=== PATIENT | female | born 1985 ===

== ENCOUNTER 2018-06-08 23:39 | Inpatient (IN) | payer OTHER ==
[2018-06-09] MEDS: Lactated Ringer's 1,000 ML IV ONE ×2 (00:15→00:45)
--- NOTE | 2018-06-09 00:22 | OBADHP ---
Datetime: 06/09/2018 00:06 Admit Comment, IP Provider: 32yo IUP at 39w c/o CTX since 11pm q 5m No SROM; no VB; +FM PNC: CP Dr Bucio - transferred at 31w - chart rev'd POBGYNH: x 1; no STD PMH: denies PSH: denies NKA PSoH: denies smoking ETOH drugs A;IUP at 39w latnet phase of labor painful CTX PLAN admit to L_D pain managent, labor, medications augmentation , delivery and discussed Pelvic Type - PN: Adequate Extremities - PN: Normal Abdomen - PN: Normal Back - PN: Normal Breast - PN: Normal Lungs - PN: Normal Heart - PN: Normal Thyroid - PN: Normal Neurologic - PN: Normal HEENT - PN: Normal General - PN: Normal Presentation-Admit: Vertex IP Fetus A Comments: Sono cpeh FHR - Baseline A Provider: 130 Membranes, Provider: Intact Contraction Comments Provider: occ Pool Provider: Negative IP Hx Assessment: The History has been Reviewed and is Current IP Chief Complaint: Uterine contractions NICHD Variability Prov Fetus A: Moderate 6-25bpm NICHD Accel Fetus A IP Provider: 10X10 FHR Category Provider Fetus A: Category I NICHD Decel Fetus A IP Provider: None Dilatation, Provider: 3-4 Effacement, Provider: 50 Station, Provider: -2 Genitourinary Exam: Normal DTRs - PN: Normal IP Adm Impression: Term, intrauterine ; Intact Membranes IP Admit Plan: Admit to unit; Initiate labor protocol
[2018-06-09 00:23] VITALS: BMI 24.1
[2018-06-09 00:39] LABS: BASO % 0.4 % (0.0-2.0); EOS # 0.2 K/uL (0.0-0.7); EOS % 2.3 % (0.0-4.0); HEMOGLOBIN 11.9 g/dL (12.0-16.0); LYMPH # 1.6 K/uL (1.0-4.3); LYMPH % 21.2 % (20.0-40.0); MEAN CELL VOLUME 90.7 fl (81.0-99.0); MEAN CORPUSCULAR HEMOGLOBIN 30.9 pg (27.0-31.0); MEAN CORPUSCULAR HGB CONC 34.1 g/dL (33.0-37.0); MEAN PLATELET VOLUME 7.8 fl (7.2-11.7); MONO # 0.5 K/uL (0.0-0.8); MONO % 6.3 % (0.0-10.0); NEUT # 5.2 K/uL (1.8-7.0); NEUT % 69.8 % (50.0-75.0); RBC 3.85 Mil/uL (3.80-5.20); RED CELL DISTRIBUTION WIDTH 12.8 % (11.5-14.5); WHITE BLOOD COUNT 7.4 K/uL (4.8-10.8)
[2018-06-09] MEDS ORDERED: Fentanyl/Bupivacaine HCl 250 ML EPI ONE (00:53)
[2018-06-09 01:30] VITALS: RESP 18
[2018-06-09] MEDS: Lactated Ringer's 1,000 ML IV SCH ×2 (01:30→06:00)
[2018-06-09] MEDS ORDERED: Oxytocin 30 UNIT 30 UNITS/500 ML BAG IV ONE ×2 (02:39→09:03)
--- NOTE | 2018-06-09 02:41 | OBPN ---
Datetime: 06/09/2018 02:30 IP Progress Impression: Reassuring heart rate IP Informed Consent Obtain: Vaginal Delivery; Risks, Benefits and Alternatives Discussed IP Progress Plan: Augmentation; Anticipate Vaginal Delivery Pool Provider: Negative Membranes, Provider: Intact Contraction Comments Provider: occ Presentation-Admit: Vertex IP Progress Note Comment: She wanted epidural for CTX pain. She feels much better, A; Latent phase of labor PLAN: Pitocin augmentation - discussed with patient. she agrees. FHR Category Provider Fetus A: Category I Dilatation, Provider: 3-4 Effacement, Provider: 80 Station, Provider: -1 Datetime: 06/09/2018 00:06 FHR - Baseline A Provider: 130 IP Fetus A Comments: Sono cpeh NICHD Accel Fetus A IP Provider: 10X10 NICHD Variability Prov Fetus A: Moderate 6-25bpm NICHD Decel Fetus A IP Provider: None
--- NOTE | 2018-06-09 07:57 | OBPN ---
Datetime: 06/09/2018 07:50 IP Progress Impression: Normal progression of labor; Reassuring heart rate IP Informed Consent Obtain: Vaginal Delivery; Risks, Benefits and Alternatives Discussed IP Progress Plan: Continue present management; Augmentation; Anticipate Vaginal Delivery Pool Provider: Negative Membranes, Provider: Intact Presentation-Admit: Vertex IP Progress Note Comment: Second stage of labor PLAN: anticipate / Pitocin at 2miu/h FHR Category Provider Fetus A: Category I Dilatation, Provider: 10 Effacement, Provider: 100 Station, Provider: 0 NICHD Decel Fetus A IP Provider: None
[2018-06-09] MEDS ORDERED: OXYTOCIN/0.9 % NS 20 UNIT/1,000 ML BAG IV SCH (09:15)
[2018-06-09] MEDS ORDERED: Lidocaine 1% 20 MG/2 ML PF AMP ONE (10:53)
[2018-06-09] MEDS ORDERED: Lidocaine Hydrochloride 5 ML INJ ONE (12:03)
[2018-06-09] MEDS ORDERED: Acetaminophen-Codeine 300/30 mg Tab PO PRN ×2 (13:04→16:19)
[2018-06-09] MEDS ORDERED: Oxycodone/Acetaminophen 5/325 mg Tab PO PRN ×2 (13:04→16:19)
[2018-06-09] MEDS ORDERED: Benzocaine/Menthol SPRAY TOP PRN ×2 (13:04→16:19)
--- NOTE | 2018-06-09 13:18 | OBDS ---
MATERNAL INFORMATION Provider Comments: Pt progressed to complete and pushed to deliver a viable female infant through cl ear fluid at 11:53 am. Apgars 9 and 9. Tight nuchal cord not reduced until until baby was placed on abdomen. Cord doubly clamped and FOB cut the cord. Placenta delivered spontaneously intact w/ a 3v c at 12 noon. Large second degree repaired w/ 2-0 rapide and 3-0 rapide. Pt and baby tolerated the procedure well. Rectum intact. EBL 250 mL LABOR SUMMARY EDC: 06/14/2018 00:00 No. Babies in Womb: 1 LABOR INFORMATION Group B Beta Strep: Negative PRESENTATION/POSITION BABY A Presentation: Cephalic
--- NOTE | 2018-06-09 15:24 | OBDS ---
MATERNAL INFORMATION Provider Comments: Pt progressed to complete and pushed to deliver a viable female infant through cl ear fluid at 11:53 am. Apgars 9 and 9. Tight nuchal cord not reduced until until baby was placed on abdomen. Cord doubly clamped and FOB cut the cord. Placenta delivered spontaneously intact w/ a 3v c at 12 noon. Perineum and vagina infiltrated w/ 1% lidocaine. Anal mucosa reinforced w. 4-0 v inte rrupted stiches followed by running 4-0 v. Large second degree repaired w/ 2-0 rapide and 3-0 rapide . Pt and baby tolerated the procedure well. Rectum intact. EBL 250 mL LABOR SUMMARY EDC: 06/14/2018 00:00 No. Babies in Womb: 1 LABOR INFORMATION Group B Beta Strep: Negative PRESENTATION/POSITION BABY A Presentation: Cephalic
--- NOTE | 2018-06-10 10:36 | OBPPN ---
Datetime: 06/10/2018 10:23 PP Pain Prov: Within normal limits PP Nausea Prov: Denies PP Flatus Prov: Yes PP BM Prov: No PP Breasts Prov: Normal PP Heart Prov: Normal PP Lungs Prov: Normal PP Abdomen/Uterus Prov: Normal PP Lochia Prov: Normal PP Vulva/Perineum Prov: Normal PP CVA Tenderness Prov: Normal PP Extremities Prov: Normal PP Progress Prov: Normal PP Impression Prov: Normal progression; difficulties PP Plan Prov: Continue present management; consult PP Progress Note Prov: Medically she feels fine. Some perineal discomfort byut bearable. She was upset abotu being fully dilated, center consultant accessibility after delivery, delive ry itself, and care - will refer to nurse managers regarding postopartum care A; S/P day 1 PLAN: cont care; center consultant aware and present in hospital...will see pt Poostpartum CBC ordered/ check VZV Vital Signs Provider PP: Within Normal Limits
[2018-06-10 11:27] LABS: HEMOGLOBIN 10.2 g/dL (12.0-16.0); MEAN CORPUSCULAR HEMOGLOBIN 32.2 pg (27.0-31.0); MEAN CORPUSCULAR HGB CONC 35.4 g/dL (33.0-37.0); RBC 3.17 Mil/uL (3.80-5.20); RED CELL DISTRIBUTION WIDTH 12.8 % (11.5-14.5); WHITE BLOOD COUNT 8.2 K/uL (4.8-10.8)
--- NOTE | 2018-06-10 13:06 | NBPN ---
Datetime: 06/10/2018 13:03 Nsy Prov Gen Appearance: Within Normal Limits Nsy Prov Skin: Within Normal Limits Nsy Prov Neuro: Normal Tone; Rainer; Grasp Nsy Prov Musculoskeletal: Within Normal Limits; Full Range of Motion; Spontaneous Movement All Extre mities; Intact Clavicles; Clavicles without Crepitus; Spine Within Normal Limits; No Sacral Dimple/Cy st Nsy Prov Head: Normal Fontanelles; Normocephalic; Sutures WNL Nsy Prov EENT: Mouth Within Normal Limits; Ears Within Normal Limits; Eyes Within Normal Limits; Eye s Red Reflex Bilaterally; Nose Within Normal Limits; Face Within Normal Limits Nsy Prov Cardiovascular: Within Normal Limits; Normal Pulses Nsy Prov Respiratory: Within Normal Limits Nsy Prov GI: Within Normal Limits; Soft; Normal Liver; Non Palpable Spleen Nsy Prov Umbilicus: Within Normal Limits Nsy Prov : Normal Female Genitalia Nsy Prov Gen Appearance Details: with mom then larger family. calm pretty. Awakens then falls back t o sleep Nsy Prov Impression: Healthy Term ; Vital Signs Appropriate; Bonding Appropriately; Voiding a nd Stooling Nsy Prov Plan: Continue Care; Consult Nsy Prov Impression/Plan Details: FT female, AGA, . Well. Breast feeding exclusively with stool a nd void. Experienced mom. Continue routine care. Prepare for discharge tomorrow
[2018-06-11] MEDS ORDERED: Docusate-Senna 50 mg-8.6 mg Tab PO PRN (10:22)
--- NOTE | 2018-06-11 10:31 | OBPPN ---
Datetime: 06/11/2018 10:27 PP Pain Prov: Within normal limits PP Nausea Prov: Denies PP Flatus Prov: Yes PP Breasts Prov: Normal PP Heart Prov: Normal PP Lungs Prov: Normal PP Abdomen/Uterus Prov: Normal PP Lochia Prov: Normal PP Vulva/Perineum Prov: Normal PP CVA Tenderness Prov: Normal PP Extremities Prov: Normal PP C/S Incision Prov: Not Applicable PP Progress Prov: Normal PP Impression Prov: Normal progression PP Plan Prov: Discharge PP Progress Note Prov: s: tolerating reg diet. some pain along laceration repair relieved w/ med. c/ o no bm had prune juice this am i: ppd2 doing well constipation p: d/c colace. rx senokot s prn. rx dulcolax prn sitz baths d/w pt rx meds for d/c: [id number], motrin 600mg #20, senokot s. may take Fe 1-2x per wk if develops cons tipation IP PP Procedures: None Vital Signs Provider PP: Within Normal Limits
--- NOTE | 2018-06-11 10:34 | OBDCSUM ---
Datetime: 06/11/2018 10:31 Follow up at, Provider: ob dr Disch Instr Activity: Normal activity Disch Instr Diet: Regular Discharge Instructions, Provider: Routine instructions given Discharge Diagnosis, Provider: Term Delivered Discharge Time: 06/11/2018 10:31 Follow up in weeks, Provider: 4-6wks Disch Referrals: None Disch Activity Restrictions: No sexual activity; Nothing in vagina - [place], tampons, douche Discharge Comment, Provider: p: d/c colace. rx senokot s prn. rx dulcolax prn sitz baths d/w pt rx meds for d/c: [id number], motrin 600mg #20, senokot s. may take Fe 1-2x per wk if develops cons tipation
[2018-06-11 19:35] VITALS: BP 108/62; PULSE 74; TEMP 97.5; O2SAT 100
== END 2018-06-11 15:15 | disposition home or self-care (01) | DRG 775 ==
LOC: H.EROB2 23:39 → H.L&D 06-09 00:07 → H.OB/GYN 06-09 14:41
PROVIDERS: ADMIT Obstetrics & Gynecology; ATTEND Obstetrics & Gynecology
PROC: 10E0XZZ Delivery of Products of Conception, External Approach (ICD-10-PCS; principal; 2018-06-09)
PROC: 0KQM0ZZ Repair Perineum Muscle, Open Approach (ICD-10-PCS; 2018-06-09)
PROC: 4A1HXCZ Monitoring of Products of Conception, Cardiac Rate, External Approach (ICD-10-PCS; 2018-06-09)
DX: O69.1XX0 Labor and delivery complicated by cord around neck, with compression, not applicable or unspecified (principal); Z37.0 Single live birth; Z3A.39 39 weeks gestation of pregnancy; O70.1 Second degree perineal laceration during delivery